=== PATIENT | male | born 1980 | race Two or more races ===

== ENCOUNTER 2018-12-28 17:59 | Emergency (ER) | payer OTHER ==
[~2018-12-28] VITALS: Ht 157.5 cm; Wt 72.6 kg
--- NOTE | 2018-12-28 18:41 | NUR ---
ED Nurse Note:pt eval by lluvia slater. c/o as per triage note. no new s/s. a/ox3
[2018-12-28 18:44] VITALS: BP 142/104
--- NOTE | 2018-12-28 18:44 | Emergency Room Report ---
History of Present Illness General Chief Complaint: Upper Extremity Injury Source: Patient Present Illness HPI 38-year-old male presents to the emergency department complaining of 8 out of 10 in severity muscle pain and cramping to the bilateral hands, forearms and on occasion radiation up into the shoulder/bilateral neck area. 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 Patient denies appreciable trauma or fall. Patient reports on occasion some numbness and tingling in the hands only. Patient denies previous injuries to these extremities or symptoms consistent with these from the past. He denies trauma or fall. Denies significant past medical history and reports that he takes vitamins regularly and feels that he is of normal nutritional status. Denies gross motor weakness. Allergies: Coded Allergies: No Known Allergies (Unverified , 12/28/18) Patient History Past Medical History: see triage record Past Surgical History: none Pertinent Family History: none Reviewed Nursing Documentation: PMH: Agreed; PSxH: Agreed Nursing Documentation-PMH Past Medical History: No Stated History Review of Systems All Other Systems: negative except mentioned in HPI Physical Exam Vital Signs Date Time Temp Pulse Resp B/P (MAP) Pulse Ox O2 Delivery O2 Flow Rate FiO2 12/28/18 18:06 98.4 83 18 142/104 99 Room Air Sp02 EP Interpretation: reviewed, normal General Appearance: no apparent distress, alert, GCS 15, non-toxic Head: normocephalic, atraumatic Eyes: bilateral eye normal inspection, bilateral eye PERRL ENT: hearing grossly normal, normal voice Neck: full range of motion, no bony tend, tender lateral - trapezius muscles bilateral, FROM of neck Respiratory: lungs clear, normal breath sounds, speaking full sentences Cardiovascular #1: regular rate, rhythm Musculoskeletal: back normal, gait/station normal, normal range of motion, tender - bilateral palms and volar wrists, negative tinnels sign, no obvious deformities Neurologic: alert, oriented x3, responsive, motor strength/tone normal, sensory intact, speech normal, grossly normal Psychiatric: judgement/insight normal Skin: normal color, no rash, warm/dry, well hydrated Medical Decision Making PA Attestation Dr. Borjas is my supervising Physician whom patient management has been discussed with. Diagnostic Impression: Primary Impression: Overuse syndrome Additional Impression: Muscle spasm ER Course 38-year-old male presents to the emergency department complaining of 8 out of 10 in severity muscle pain and cramping to the bilateral hands, forearms and on occasion radiation up into the shoulder/bilateral neck area. 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 Patient denies appreciable trauma or fall. Patient reports on occasion some numbness and tingling in the hands only. Patient denies previous injuries to these extremities or symptoms consistent with these from the past. He denies trauma or fall. Denies significant past medical history and reports that he takes vitamins regularly and feels that he is of normal nutritional status. Denies gross motor weakness. Ddx considered but are not limited to Fracture, dislocation, contusion, Sprain/ Strain/Spasm, overuse syndrome, potassium abnormality just to name a few Vital signs: are WNL, pt. is afebrile H&PE are most consistent with musculoskeletal injury will perform imaging to r/ o fractures/dislocations. ORDERS: - None required at this time patient does not have any bony tenderness that is localized which would warrant x-ray imaging. No other indication for emergent imaging is found on physical exam. ED INTERVENTIONS: none at this time -I do not identify an emergent condition at this time. With current presentation , pt. is stable for close outpatient follow up and conservative treatment. D/ w pt. to return promptly to ED with worsening or new symptoms.- Pt. verbalizes' understanding and agreement with proposed treatment plan. DISCHARGE: At this time pt. is stable for d/c to home. Will provide printed patient care instructions, and any necessary prescriptions. Care plan and follow up instructions have been discussed with the patient prior to discharge. Last Vital Signs Date Time Temp Pulse Resp B/P (MAP) Pulse Ox O2 Delivery O2 Flow Rate FiO2 12/28/18 18:06 98.4 83 18 142/104 99 Room Air Disposition: HOME, SELF-CARE Condition: Stable Scripts Diclofenac Sodium (VOLTAREN) 100 Gm Gel..gram. 1 APPLIC TP Q6HR, #100 GM Prov: Tatianna Briggs 12/28/18 Methocarbamol* (ROBAXIN-750*) 750 Mg Tablet 750 MG PO QID for 7 Days, #28 TAB 0 Refills Prov: Tatianna Briggs 12/28/18 Departure Forms: Return to Work Return to Work Date: Jan 01, 2019 Work Restrictions: No Heavy Lifting Other Restrictions: Limited use of upper extremities. limit repetitive movements. Return to Full Activity: Jan 08, 2019 Patient Instructions: Muscle Cramps and Spasms, [id number], Repetitive Strain Injuries Additional Instructions: Take medications as directed. Follow up with a Primary Care Provider in 3-5 days, even if your symptoms have resolved. --Please review list of primary care clinics, if you do not already have a primary care provider Return sooner to ED if new symptoms occur, or current symptoms become worse. Do not drink alcohol, drive, or operate heavy machinery while taking Robaxin ( Muscle Relaxers) as this may cause drowsiness. - Please note that this Emergency Department Report was dictated using [employer] to swim instructor technology software, occasionally this can lead to erroneous entry secondary to interpretation by the dictation equipment. Tatianna Briggs Dec 28, 2018 18:44
--- NOTE | 2018-12-28 18:44 | NUR ---
ED Nurse Note: pt denies injury or rash. no redness noted no edema.
[2018-12-28] MEDS ORDERED: VOLTAREN100 G1 TP (18:47)
[2018-12-28] MEDS ORDERED: ROBAXIN-750750 MG PO (18:47)
--- NOTE | 2018-12-28 19:10 | NUR ---
ED Nurse Note:pt given dc aci script and work comp paperwork. pt agrees to fu plan. amb steady gait out of ed.
[2018-12-28 19:11] VITALS: BP 141/89
== END 2018-12-28 19:13 | disposition home or self-care (01) ==
LOC: EMR 18:41
DX: M79.642 Pain in left hand (principal); M79.641 Pain in right hand; M62.838 Other muscle spasm; X50.3XXA Overexertion from repetitive movements, initial encounter; Y92.59 Other trade areas as the place of occurrence of the external cause; Y99.0 Civilian activity done for income or pay
CPT/HCPCS: 99282